=== PATIENT | female | born 1940 | race Caucasian/White ===

== ENCOUNTER 2018-01-17 09:04 | Inpatient (IN) | payer MEDICARE ==
[~2018-01-17] VITALS: Ht 154.9 cm; Wt 72.1 kg
[2018-01-17] VITALS (18 sets, daily range): BP systolic 89–117; BP diastolic 44–70
[2018-01-17 10:14] LABS: Basophils # (auto) 0 uL; Basophils % (auto) 0.5 % (0.0-2.0); Eosinophils # (auto) 0.1 uL; Eosinophils % (auto) 1.1 % (0.0-7.0); Hematocrit 27.9 % (36.0-46.0); Hemoglobin 9.4 g/dL (12.2-16.2); Lymphocytes # (auto) 0.8 uL; Lymphocytes % (auto) 16.4 % (10.0-50.0); Mean Corpuscular Hemoglobin 29.5 pg (28.0-32.0); Mean Corpuscular Hgb Conc. 33.6 g/dL (32.0-36.0); Mean Corpuscular Volume 87.5 fL (80.0-100.0); Monocytes # (auto) 0.5 uL; Monocytes % (auto) 9.9 % (0.0-12.0); Neutrophils # (auto) 3.7 uL; Neutrophils % (auto) 72.1 % (37.0-80.0); Platelet Count (auto) 253 10^3/uL (140-450); Red Blood Cells 3.18 10^6/uL (4.0-5.20); Red Cell Distribution Width 14.1 % (11.8-14.3); White Blood Cell 5.1 10^3/uL (4.4-10.8)
[2018-01-17 10:21] LABS: INR 1.04 (0.9-1.15); Partial Thromboplastin Time 27.3 sec (22.64-33.71); Prothrombin Time 11.3 sec (9.37-12.3)
[2018-01-17 10:39] LABS: Albumin 2.7 g/dL (3.4-5.0); Bilirubin, Total 0.8 mg/dL (0.2-1.0); Calcium 8.2 mg/dL (8.5-10.1); Magnesium 2.2 mg/dL (1.6-2.6); Potassium 3.9 mmol/L (3.5-5.1); Total Protein 6.3 g/dL (6.4-8.2)
[2018-01-17] MEDS ORDERED: ASPirin 81 mg TAB PO ONE (11:00)
[2018-01-17] MEDS ORDERED: FUROSEMIDE 20 MG/2 ML VIAL IV ONE (12:15)
[2018-01-17] MEDS ORDERED: NOREPINEPHRINE 8 MG/250ML KIT 250 ML IV SCH (12:18)
[2018-01-17] MEDS ORDERED: NOREPINEPHRINE 8 MG/250ML KIT 250 ML IV ONE (12:21)
[2018-01-17 13:15] LABS: Urine Bacteria NONE SEEN /hpf (None Seen); Urine Blood Negative /uL (Negative); Urine Specific Gravity 1.014 (1.001-1.035); Urine WBC <1 /hpf (0 - 5)
[2018-01-17] MEDS ORDERED: LEVOFLOXACIN 500 MG TAB PO ONE (14:45)
[2018-01-17] MEDS ORDERED: ALUM & MAG HYDROX-SIMETH LIQ(MAALOX) 30 ML PO ONE (14:45)
[2018-01-17] MEDS ORDERED: LORazepam 0.5 MG TAB PO PRN (14:45)
[2018-01-17] MEDS ORDERED: POTASSIUM CHL 10 Meq TABLET PO ONE (14:45)
[2018-01-17] MEDS ORDERED: PANTOPRAZOLE 40 MG TAB PO ONE (14:45)
[2018-01-17] MEDS ORDERED: ZOLPIDEM TARTRATE 5 MG TAB PO PRN (14:45)
[2018-01-17] MEDS ORDERED: ACETYLCYSTEINE ORAL for CIN 20%(200MG/ML) 4ML PO ONE (14:45)
[2018-01-17] MEDS ORDERED: ONDANSETRON HCL 4 MG/2 ML VIAL IV PRN (14:45)
[2018-01-17] MEDS ORDERED: MORPHINE SULFATE 4 MG/ML SYR/VIAL IV PRN ×2 (14:45)
[2018-01-17] MEDS ORDERED: ACETAMINOPHEN 325 MG TAB PO PRN (14:45)
[2018-01-17] MEDS ORDERED: NITROGLYCERIN 0.4 MG SL TAB SL PRN ×2 (14:45)
[2018-01-17] MEDS: NOREPINEPHRINE 8 MG/250ML KIT 250 ML IV SCH (15:08)
[2018-01-17] MEDS: ACETYLCYSTEINE ORAL for CIN 20%(200MG/ML) 4ML PO SCH ×3 (15:30→22:00)
[2018-01-17] MEDS ORDERED: SODIUM CHLORIDE 0.9% 500 ML IV ONE (17:00)
[2018-01-17] MEDS ORDERED: IOHEXOL 350 MG/ML 100ML IJ ONE (17:52)
[2018-01-17] MEDS: BOOST PLUS 8 ounce PO SCH (18:37)
[2018-01-17] MEDS: ENALAPRIL MALEATE 2.5 MG TAB PO SCH (22:00)
[2018-01-17] MEDS: ENOXAPARIN SOD 60 MG/0.6 ML SYRINGE SC SCH (22:00)
[2018-01-17] MEDS: PRAVASTATIN SODIUM 20 MG TAB PO SCH (22:00)
[2018-01-17] MEDS: CARVEDILOL 3.125 MG TAB PO SCH (22:00)
[2018-01-17] MEDS: SODIUM CHLOR 0.9% PF (SALINE LOCK) 10ML VIAL/SYR IV SCH (22:00)
[2018-01-18] VITALS (81 sets, daily range): BP systolic 87–145; BP diastolic 37–82
[2018-01-18 03:47] LABS: Basophils # (auto) 0 uL; Basophils % (auto) 0.3 % (0.0-2.0); Eosinophils # (auto) 0.1 uL; Eosinophils % (auto) 1.7 % (0.0-7.0); Hemoglobin 10.3 g/dL (12.2-16.2); Lymphocytes # (auto) 1.9 uL; Lymphocytes % (auto) 21.7 % (10.0-50.0); Mean Corpuscular Hemoglobin 29.5 pg (28.0-32.0); Mean Corpuscular Hgb Conc. 34.3 g/dL (32.0-36.0); Mean Corpuscular Volume 86.1 fL (80.0-100.0); Monocytes # (auto) 1.1 uL; Monocytes % (auto) 12.3 % (0.0-12.0); Neutrophils # (auto) 5.6 uL; Platelet Count (auto) 357 10^3/uL (140-450); Red Blood Cells 3.48 10^6/uL (4.0-5.20); Red Cell Distribution Width 14.1 % (11.8-14.3); White Blood Cell 8.7 10^3/uL (4.4-10.8)
[2018-01-18 04:21] LABS: Albumin 2.9 g/dL (3.4-5.0); BUN/Creatinine Ratio 24.8; Bilirubin, Total 0.5 mg/dL (0.2-1.0); Calcium 8.3 mg/dL (8.5-10.1); Potassium 3.7 mmol/L (3.5-5.1); Total Protein 6.6 g/dL (6.4-8.2)
[2018-01-18] MEDS: SODIUM CHLOR 0.9% PF (SALINE LOCK) 10ML VIAL/SYR IV SCH ×3 (08:23→22:26)
[2018-01-18] MEDS: BOOST PLUS 8 ounce PO SCH ×3 (08:24→18:53)
[2018-01-18] MEDS: ACETYLCYSTEINE ORAL for CIN 20%(200MG/ML) 4ML PO SCH ×2 (10:00→22:00)
[2018-01-18] MEDS: CARVEDILOL 3.125 MG TAB PO SCH ×2 (10:00→22:00)
[2018-01-18] MEDS: ENALAPRIL MALEATE 2.5 MG TAB PO SCH ×2 (10:00→22:00)
[2018-01-18] MEDS: PANTOPRAZOLE 40 MG TAB PO SCH (10:22)
[2018-01-18] MEDS: LEVOFLOXACIN 250 MG TAB PO SCH (10:22)
[2018-01-18] MEDS: DOCUSATE SOD 100 MG CAP PO SCH (10:22)
[2018-01-18] MEDS: POTASSIUM CHL 10 Meq TABLET PO SCH (10:22)
[2018-01-18] MEDS: CLOPIDOGREL BISULFATE 75 MG TAB PO SCH (10:22)
[2018-01-18] MEDS: FUROSEMIDE 20 MG/2 ML VIAL IV SCH (10:24)
[2018-01-18] MEDS: ENOXAPARIN SOD 60 MG/0.6 ML SYRINGE SC SCH ×2 (10:25→22:27)
[2018-01-18] MEDS ORDERED: DIGOXIN (250MCG/ML) 2 ML AMPULE IV ONE (11:45)
[2018-01-18] MEDS ORDERED: NICOTINE 14 MG/24HR TOPICAL PATCH TD ONE (13:00)
[2018-01-18] MEDS: NOREPINEPHRINE 8 MG/250ML KIT 250 ML IV SCH (14:45)
[2018-01-18] MEDS ORDERED: FAMOTIDINE 20 MG TAB PO ONE (15:00)
[2018-01-18] MEDS ORDERED: ALUM & MAG HYDROX-SIMETH LIQ(MAALOX) 30 ML PO PRN (15:00)
[2018-01-18] MEDS: PRAVASTATIN SODIUM 20 MG TAB PO SCH (23:00)
[2018-01-19] VITALS (102 sets, daily range): BP systolic 78–129; BP diastolic 36–89
[2018-01-19] MEDS: SODIUM CHLOR 0.9% PF (SALINE LOCK) 10ML VIAL/SYR IV SCH ×3 (05:15→21:54)
[2018-01-19 07:36] LABS: Basophils # (auto) 0 uL; Basophils % (auto) 0.3 % (0.0-2.0); Eosinophils # (auto) 0.1 uL; Eosinophils % (auto) 0.7 % (0.0-7.0); Hematocrit 27.8 % (36.0-46.0); Hemoglobin 9.8 g/dL (12.2-16.2); Lymphocytes # (auto) 1.2 uL; Lymphocytes % (auto) 15.5 % (10.0-50.0); Mean Corpuscular Hemoglobin 30.3 pg (28.0-32.0); Mean Corpuscular Hgb Conc. 35.1 g/dL (32.0-36.0); Mean Corpuscular Volume 86.2 fL (80.0-100.0); Monocytes # (auto) 0.8 uL; Monocytes % (auto) 10.2 % (0.0-12.0); Neutrophils # (auto) 5.5 uL; Neutrophils % (auto) 73.3 % (37.0-80.0); Nucleated Red Blood Cells % 0.1 %; Platelet Count (auto) 314 10^3/uL (140-450); Red Blood Cells 3.23 10^6/uL (4.0-5.20); Red Cell Distribution Width 14.3 % (11.8-14.3); White Blood Cell 7.5 10^3/uL (4.4-10.8)
[2018-01-19 08:12] LABS: Albumin 2.7 g/dL (3.4-5.0); Bilirubin, Total 0.8 mg/dL (0.2-1.0); Calcium 8.3 mg/dL (8.5-10.1); Potassium 3.6 mmol/L (3.5-5.1); Total Protein 6.4 g/dL (6.4-8.2)
[2018-01-19] MEDS: ACETYLCYSTEINE ORAL for CIN 20%(200MG/ML) 4ML PO SCH ×2 (10:00→22:00)
[2018-01-19] MEDS: ENALAPRIL MALEATE 2.5 MG TAB PO SCH ×2 (10:00→22:00)
[2018-01-19] MEDS: FUROSEMIDE 20 MG/2 ML VIAL IV SCH (10:29)
[2018-01-19] MEDS: NICOTINE 14 MG/24HR TOPICAL PATCH TD SCH (10:30)
[2018-01-19] MEDS: FAMOTIDINE 20 MG TAB PO SCH (10:30)
[2018-01-19] MEDS: ENOXAPARIN SOD 60 MG/0.6 ML SYRINGE SC SCH ×2 (10:48→21:54)
[2018-01-19] MEDS: POTASSIUM CHL 10 Meq TABLET PO SCH (10:49)
[2018-01-19] MEDS: CLOPIDOGREL BISULFATE 75 MG TAB PO SCH (10:49)
[2018-01-19] MEDS: CARVEDILOL 3.125 MG TAB PO SCH ×2 (10:49→22:00)
[2018-01-19] MEDS: PANTOPRAZOLE 40 MG TAB PO SCH (10:49)
[2018-01-19] MEDS: LEVOFLOXACIN 250 MG TAB PO SCH (10:49)
[2018-01-19] MEDS: DOCUSATE SOD 100 MG CAP PO SCH (10:49)
[2018-01-19] MEDS: BOOST PLUS 8 ounce PO SCH ×3 (10:50→18:00)
[2018-01-19] MEDS ORDERED: ALBUTEROL SULF 2.5 MG/0.5ML(0.5%) NEB SOLN NEB PRN (11:30)
[2018-01-19] MEDS ORDERED: LEVOFLOXACIN 500MG 100 ML IV ONE (11:45)
[2018-01-19] MEDS ORDERED: cefTRIAXone 1GM/10ml IVPUSH 10 ML IV ONE (11:45)
[2018-01-19] MEDS ORDERED: ALBUTEROL SULF 2.5 MG/0.5ML(0.5%) NEB SOLN NEB SCH (11:45)
[2018-01-19] MEDS: ALBUTEROL SULF 2.5 MG/0.5ML(0.5%) NEB SOLN NEB SCH ×2 (12:00→18:51)
[2018-01-19] MEDS: IPRATROPIUM BROM 0.5 MG/2.5ML INH SOL NEB SCH ×2 (12:00→18:51)
[2018-01-19] MEDS: methylPREDNISolone SOD SUCC 40 MG/ML VL IV SCH ×2 (13:59→19:46)
[2018-01-19] MEDS: NOREPINEPHRINE 8 MG/250ML KIT 250 ML IV SCH (15:00)
[2018-01-19] MEDS ORDERED: MIDAZOLAM HCL 5 MG/ML-1ML VIAL ONE (15:37)
[2018-01-19] MEDS ORDERED: ROCURONIUM 10MG/ML 10ML VIAL IV ONE (15:37)
[2018-01-19] MEDS ORDERED: ETOMIDATE (2MG/ML) 20ML VIAL IV ONE (15:37)
[2018-01-19] MEDS ORDERED: SUCCINYLCHOLINE CHLORIDE 20 MG/ML 10ML VIAL IV ONE (15:38)
[2018-01-19] MEDS ORDERED: PROPOFOL 100 ML IV ONE (17:45)
[2018-01-19] MEDS ORDERED: FUROSEMIDE 40 MG/4 ML VIAL IV ONE (21:15)
[2018-01-19] MEDS: PROPOFOL 100 ML IV SCH (21:54)
[2018-01-19] MEDS: PRAVASTATIN SODIUM 20 MG TAB PO SCH (22:00)
[2018-01-20] VITALS (91 sets, daily range): BP systolic 97–132; BP diastolic 54–98
[2018-01-20] MEDS: methylPREDNISolone SOD SUCC 40 MG/ML VL IV SCH ×5 (00:13→23:52)
[2018-01-20] MEDS: IPRATROPIUM BROM 0.5 MG/2.5ML INH SOL NEB SCH ×4 (00:29→18:43)
[2018-01-20] MEDS: ALBUTEROL SULF 2.5 MG/0.5ML(0.5%) NEB SOLN NEB SCH ×4 (00:29→18:43)
[2018-01-20 03:47] LABS: Basophils # (auto) 0 uL; Eosinophils # (auto) 0 uL; Hematocrit 30.7 % (36.0-46.0); Hemoglobin 10.5 g/dL (12.2-16.2); Lymphocytes # (auto) 0.6 uL; Lymphocytes % (auto) 11.2 % (10.0-50.0); Mean Corpuscular Hemoglobin 29.5 pg (28.0-32.0); Mean Corpuscular Hgb Conc. 34.2 g/dL (32.0-36.0); Mean Corpuscular Volume 86.4 fL (80.0-100.0); Monocytes # (auto) 0.2 uL; Monocytes % (auto) 3.3 % (0.0-12.0); Neutrophils # (auto) 4.8 uL; Neutrophils % (auto) 85.5 % (37.0-80.0); Nucleated Red Blood Cells % 0.1 %; Platelet Count (auto) 383 10^3/uL (140-450); Red Blood Cells 3.55 10^6/uL (4.0-5.20); Red Cell Distribution Width 14.1 % (11.8-14.3); White Blood Cell 5.6 10^3/uL (4.4-10.8)
[2018-01-20 03:54] LABS: Albumin 2.6 g/dL (3.4-5.0); BUN/Creatinine Ratio 27.5; Calcium 8.2 mg/dL (8.5-10.1); Potassium 3.7 mmol/L (3.5-5.1)
[2018-01-20 03:58] LABS: Bilirubin, Total 0.6 mg/dL (0.2-1.0); Total Protein 6.8 g/dL (6.4-8.2)
[2018-01-20] MEDS: SODIUM CHLOR 0.9% PF (SALINE LOCK) 10ML VIAL/SYR IV SCH ×3 (06:29→22:00)
[2018-01-20] MEDS: BOOST PLUS 8 ounce PO SCH ×3 (08:00→18:00)
[2018-01-20] MEDS: POTASSIUM CHL 10 Meq TABLET PO SCH (10:00)
[2018-01-20] MEDS: ENALAPRIL MALEATE 2.5 MG TAB PO SCH ×2 (10:00→21:41)
[2018-01-20] MEDS: CARVEDILOL 3.125 MG TAB PO SCH ×2 (10:00→21:41)
[2018-01-20] MEDS: FAMOTIDINE 20 MG TAB PO SCH (10:25)
[2018-01-20] MEDS: CLOPIDOGREL BISULFATE 75 MG TAB PO SCH (10:25)
[2018-01-20] MEDS: DOCUSATE SOD 100 MG CAP PO SCH (10:25)
[2018-01-20] MEDS: LEVOFLOXACIN 500MG 100 ML IV SCH (10:25)
[2018-01-20] MEDS: cefTRIAXone 1GM/10ml IVPUSH 10 ML IV SCH (10:26)
[2018-01-20] MEDS: NICOTINE 14 MG/24HR TOPICAL PATCH TD SCH (10:27)
[2018-01-20] MEDS: ENOXAPARIN SOD 60 MG/0.6 ML SYRINGE SC SCH ×2 (10:27→21:48)
[2018-01-20] MEDS: FUROSEMIDE 20 MG/2 ML VIAL IV SCH ×2 (10:28→18:00)
[2018-01-20] MEDS ORDERED: LACTULOSE 20Gm/30ML SOLN PO PRN (11:00)
[2018-01-20] MEDS ORDERED: OPTISON 3ml Vial for INJ IV ONE (11:48)
[2018-01-20] MEDS ORDERED: MIDAZOLAM HCL 1MG/1ML-2 ML VIAL ONE ×3 (11:54→15:18)
[2018-01-20] MEDS ORDERED: LIDOCAINE 2%HCL (LOCAL ANESTH.) INJ 20ML MDV ONE (13:17)
[2018-01-20] MEDS ORDERED: IOHEXOL 350 MG/ML 100ML IJ ONE ×2 (13:17→14:08)
[2018-01-20] MEDS ORDERED: ANGIOMAX 250 MG VIAL IV ONE (13:37)
[2018-01-20] MEDS ORDERED: SODIUM CHL 0.9% 50 ML ONE (13:38)
[2018-01-20] MEDS ORDERED: NITROGLYCERIN 50MG/250ML 250 ML IV ONE (15:44)
[2018-01-20] MEDS: NOREPINEPHRINE 8 MG/250ML KIT 250 ML IV SCH (16:15)
[2018-01-20] MEDS: NITROGLYCERIN 50MG/250ML 250 ML IV SCH (16:15)
[2018-01-20] MEDS: PROPOFOL 100 ML IV SCH (21:25)
[2018-01-20] MEDS: PRAVASTATIN SODIUM 20 MG TAB PO SCH (21:48)
[2018-01-21] VITALS (106 sets, daily range): BP systolic 27–296; BP diastolic 0–170
[2018-01-21] MEDS: ALBUTEROL SULF 2.5 MG/0.5ML(0.5%) NEB SOLN NEB SCH ×4 (00:06→19:03)
[2018-01-21] MEDS: IPRATROPIUM BROM 0.5 MG/2.5ML INH SOL NEB SCH ×4 (00:06→19:03)
[2018-01-21] MEDS: PROPOFOL 100 ML IV SCH ×4 (01:30→20:52)
[2018-01-21 03:58] LABS: Basophils # (auto) 0 uL; Basophils % (auto) 0.1 % (0.0-2.0); Eosinophils # (auto) 0 uL; Hemoglobin 9.8 g/dL (12.2-16.2); Lymphocytes # (auto) 0.5 uL; Lymphocytes % (auto) 5.1 % (10.0-50.0); Mean Corpuscular Hemoglobin 30.2 pg (28.0-32.0); Mean Corpuscular Hgb Conc. 35.1 g/dL (32.0-36.0); Mean Corpuscular Volume 86.1 fL (80.0-100.0); Monocytes # (auto) 0.7 uL; Monocytes % (auto) 6.7 % (0.0-12.0); Neutrophils # (auto) 8.6 uL; Neutrophils % (auto) 88.1 % (37.0-80.0); Platelet Count (auto) 356 10^3/uL (140-450); Red Blood Cells 3.25 10^6/uL (4.0-5.20); Red Cell Distribution Width 14.4 % (11.8-14.3); White Blood Cell 9.7 10^3/uL (4.4-10.8)
[2018-01-21 04:19] LABS: Albumin 2.3 g/dL (3.4-5.0); BUN/Creatinine Ratio 26.3; Calcium 7.6 mg/dL (8.5-10.1)
[2018-01-21 04:36] LABS: Bilirubin, Total 0.3 mg/dL (0.2-1.0); Total Protein 6.2 g/dL (6.4-8.2)
[2018-01-21] MEDS: FUROSEMIDE 20 MG/2 ML VIAL IV SCH ×2 (05:46→18:03)
[2018-01-21] MEDS: methylPREDNISolone SOD SUCC 40 MG/ML VL IV SCH ×3 (05:47→17:46)
[2018-01-21] MEDS: SODIUM CHLOR 0.9% PF (SALINE LOCK) 10ML VIAL/SYR IV SCH ×3 (05:47→22:13)
[2018-01-21] MEDS: BOOST PLUS 8 ounce PO SCH ×3 (08:00→18:00)
[2018-01-21] MEDS: FAMOTIDINE 20 MG TAB PO SCH (10:00)
[2018-01-21] MEDS: ENALAPRIL MALEATE 2.5 MG TAB PO SCH ×2 (10:00→22:00)
[2018-01-21] MEDS: ENOXAPARIN SOD 60 MG/0.6 ML SYRINGE SC SCH ×2 (10:00→22:12)
[2018-01-21] MEDS: CARVEDILOL 3.125 MG TAB PO SCH ×2 (10:00→22:00)
[2018-01-21] MEDS: CLOPIDOGREL BISULFATE 75 MG TAB PO SCH (10:00)
[2018-01-21] MEDS: LEVOFLOXACIN 500MG 100 ML IV SCH (10:24)
[2018-01-21] MEDS: cefTRIAXone 1GM/10ml IVPUSH 10 ML IV SCH (10:25)
[2018-01-21] MEDS: NICOTINE 14 MG/24HR TOPICAL PATCH TD SCH (10:25)
[2018-01-21] MEDS: SODIUM CHLORIDE 0.9% 1,000 ML IV SCH (15:00)
[2018-01-21] MEDS: NOREPINEPHRINE 8 MG/250ML KIT 250 ML IV SCH (15:00)
[2018-01-21] MEDS: NITROGLYCERIN 50MG/250ML 250 ML IV SCH (16:15)
[2018-01-21] MEDS: PRAVASTATIN SODIUM 20 MG TAB PO SCH (22:12)
[2018-01-22] VITALS (95 sets, daily range): BP systolic 26–125; BP diastolic 13–82
[2018-01-22] MEDS: IPRATROPIUM BROM 0.5 MG/2.5ML INH SOL NEB SCH ×4 (00:07→19:08)
[2018-01-22] MEDS: ALBUTEROL SULF 2.5 MG/0.5ML(0.5%) NEB SOLN NEB SCH ×4 (00:07→19:08)
[2018-01-22] MEDS: PROPOFOL 100 ML IV SCH ×2 (00:32→05:07)
[2018-01-22] MEDS: methylPREDNISolone SOD SUCC 40 MG/ML VL IV SCH ×4 (00:34→17:44)
[2018-01-22] MEDS: NITROGLYCERIN 50MG/250ML 250 ML IV SCH (02:40)
[2018-01-22] MEDS: SODIUM CHLORIDE 0.9% 1,000 ML IV SCH ×2 (04:04→17:25)
[2018-01-22 04:10] LABS: BUN/Creatinine Ratio 33.3; Calcium 7.1 mg/dL (8.5-10.1); Potassium 3.7 mmol/L (3.5-5.1)
[2018-01-22] MEDS: FUROSEMIDE 20 MG/2 ML VIAL IV SCH ×2 (06:07→17:45)
[2018-01-22] MEDS: SODIUM CHLOR 0.9% PF (SALINE LOCK) 10ML VIAL/SYR IV SCH ×3 (06:08→22:11)
[2018-01-22] MEDS ORDERED: LIDOCAINE 2%HCL (LOCAL ANESTH.) INJ 20ML MDV ONE (07:29)
[2018-01-22] MEDS ORDERED: IOHEXOL 350 MG/ML 100ML IJ ONE (07:29)
[2018-01-22] MEDS: BOOST PLUS 8 ounce PO SCH ×3 (08:00→18:00)
[2018-01-22] MEDS ORDERED: ANGIOMAX 250 MG VIAL IV ONE (08:14)
[2018-01-22] MEDS ORDERED: DOPamine 1600MCG/ML D5W 0 ML IV ONE (08:15)
[2018-01-22] MEDS ORDERED: SODIUM CHL 0.9% 50 ML ONE (08:15)
[2018-01-22] MEDS ORDERED: EPINEPHrine HCL 1 MG/10 ML SYRG ONE (08:15)
[2018-01-22] MEDS ORDERED: fentaNYL CITRATE 100 MCG/2 ML VL ONE (08:27)
[2018-01-22] MEDS ORDERED: MIDAZOLAM HCL 1MG/1ML-2 ML VIAL ONE (08:32)
[2018-01-22] MEDS ORDERED: LIDOCAINE HCL 100 MG/5ML (2%) SYRG INJ IV ONE (08:55)
[2018-01-22] MEDS ORDERED: TICAGRELOR 90 MG TAB ONE (09:15)
[2018-01-22] MEDS: ENOXAPARIN SOD 60 MG/0.6 ML SYRINGE SC SCH ×2 (10:00→22:11)
[2018-01-22] MEDS: CARVEDILOL 3.125 MG TAB PO SCH ×2 (10:00→22:00)
[2018-01-22] MEDS: CLOPIDOGREL BISULFATE 75 MG TAB PO SCH (10:00)
[2018-01-22] MEDS: ENALAPRIL MALEATE 2.5 MG TAB PO SCH ×2 (10:00→22:00)
[2018-01-22] MEDS: LEVOFLOXACIN 500MG 100 ML IV SCH (10:09)
[2018-01-22] MEDS: FAMOTIDINE 20 MG TAB PO SCH (10:10)
[2018-01-22] MEDS: cefTRIAXone 1GM/10ml IVPUSH 10 ML IV SCH (10:10)
[2018-01-22] MEDS: NICOTINE 14 MG/24HR TOPICAL PATCH TD SCH (10:12)
[2018-01-22] MEDS: POTASSIUM CHL 10% (20 MEQ/15ML) 15ml ORAL SOLN GT SCH (10:24)
[2018-01-22] MEDS: fentaNYL Drip 2500mCg/250mlNS 250 ML IV SCH (10:27)
[2018-01-22] MEDS: MIDAZOLAM DRIP 50 mg/50mL 50 ML IV SCH ×3 (10:32→22:59)
[2018-01-22 11:31] LABS: Basophils # (auto) 0 uL; Basophils % (auto) 0.1 % (0.0-2.0); Eosinophils # (auto) 0 uL; Hemoglobin 8.8 g/dL (12.2-16.2); Lymphocytes # (auto) 0.4 uL; Lymphocytes % (auto) 4.4 % (10.0-50.0); Mean Corpuscular Hemoglobin 29.8 pg (28.0-32.0); Mean Corpuscular Hgb Conc. 34.1 g/dL (32.0-36.0); Mean Corpuscular Volume 87.4 fL (80.0-100.0); Monocytes # (auto) 0.6 uL; Monocytes % (auto) 5.7 % (0.0-12.0); Neutrophils # (auto) 8.9 uL; Neutrophils % (auto) 89.8 % (37.0-80.0); Nucleated Red Blood Cells % 0.1 %; Platelet Count (auto) 299 10^3/uL (140-450); Red Blood Cells 2.97 10^6/uL (4.0-5.20); Red Cell Distribution Width 14.8 % (11.8-14.3); White Blood Cell 9.9 10^3/uL (4.4-10.8)
[2018-01-22] MEDS: NOREPINEPHRINE 8 MG/250ML KIT 250 ML IV SCH (17:58)
[2018-01-22] MEDS: PRAVASTATIN SODIUM 20 MG TAB PO SCH (22:11)
[2018-01-23] VITALS (107 sets, daily range): BP systolic 31–106; BP diastolic 15–68
[2018-01-23] MEDS: IPRATROPIUM BROM 0.5 MG/2.5ML INH SOL NEB SCH ×4 (00:11→18:50)
[2018-01-23] MEDS: ALBUTEROL SULF 2.5 MG/0.5ML(0.5%) NEB SOLN NEB SCH ×4 (00:11→18:50)
[2018-01-23] MEDS: methylPREDNISolone SOD SUCC 40 MG/ML VL IV SCH ×5 (00:15→23:31)
[2018-01-23 04:28] LABS: Basophils # (auto) 0 uL; Basophils % (auto) 0.1 % (0.0-2.0); Eosinophils # (auto) 0 uL; Hematocrit 24.9 % (36.0-46.0); Hemoglobin 8.5 g/dL (12.2-16.2); Lymphocytes # (auto) 0.3 uL; Mean Corpuscular Hgb Conc. 34.1 g/dL (32.0-36.0); Monocytes # (auto) 0.7 uL; Monocytes % (auto) 7.7 % (0.0-12.0); Neutrophils # (auto) 7.6 uL; Neutrophils % (auto) 89.2 % (37.0-80.0); Platelet Count (auto) 282 10^3/uL (140-450); Red Blood Cells 2.83 10^6/uL (4.0-5.20); Red Cell Distribution Width 14.9 % (11.8-14.3); White Blood Cell 8.6 10^3/uL (4.4-10.8)
[2018-01-23 04:46] LABS: Albumin 2.4 g/dL (3.4-5.0); BUN/Creatinine Ratio 38.1; Bilirubin, Total 0.2 mg/dL (0.2-1.0); Calcium 6.9 mg/dL (8.5-10.1); Total Protein 5.9 g/dL (6.4-8.2)
[2018-01-23] MEDS: FUROSEMIDE 20 MG/2 ML VIAL IV SCH ×2 (05:50→17:51)
[2018-01-23] MEDS: SODIUM CHLOR 0.9% PF (SALINE LOCK) 10ML VIAL/SYR IV SCH ×3 (06:00→21:32)
[2018-01-23] MEDS: SODIUM CHLORIDE 0.9% 1,000 ML IV SCH (06:45)
[2018-01-23] MEDS: MIDAZOLAM DRIP 50 mg/50mL 50 ML IV SCH ×2 (07:09→21:05)
[2018-01-23] MEDS: BOOST PLUS 8 ounce PO SCH (08:00)
[2018-01-23] MEDS: LEVOFLOXACIN 500MG 100 ML IV SCH (09:56)
[2018-01-23] MEDS: FAMOTIDINE 20 MG TAB PO SCH (09:56)
[2018-01-23] MEDS: CLOPIDOGREL BISULFATE 75 MG TAB PO SCH (09:56)
[2018-01-23] MEDS: ENOXAPARIN SOD 60 MG/0.6 ML SYRINGE SC SCH ×2 (09:57→21:32)
[2018-01-23] MEDS: NICOTINE 14 MG/24HR TOPICAL PATCH TD SCH (09:57)
[2018-01-23] MEDS: ENALAPRIL MALEATE 2.5 MG TAB PO SCH ×2 (09:58→21:27)
[2018-01-23] MEDS: CARVEDILOL 3.125 MG TAB PO SCH ×2 (09:58→21:28)
[2018-01-23] MEDS: fentaNYL Drip 2500mCg/250mlNS 250 ML IV SCH (10:06)
[2018-01-23] MEDS: POTASSIUM CHL 10% (20 MEQ/15ML) 15ml ORAL SOLN GT SCH (10:12)
[2018-01-23] MEDS ORDERED: FUROSEMIDE 20 MG/2 ML VIAL IV ONE (11:15)
[2018-01-23] MEDS ORDERED: Nutren Pulmonary 1 Liter GT SCH (11:30)
[2018-01-23] MEDS: NOREPINEPHRINE 8 MG/250ML KIT 250 ML IV SCH (14:45)
[2018-01-23] MEDS: NITROGLYCERIN 50MG/250ML 250 ML IV SCH (16:15)
[2018-01-23] MEDS: PROPOFOL 100 ML IV SCH (19:52)
[2018-01-23] MEDS: FREE WATER GT SCH (21:32)
[2018-01-23] MEDS: PRAVASTATIN SODIUM 20 MG TAB PO SCH (21:32)
[2018-01-24] VITALS (101 sets, daily range): BP systolic 35–114; BP diastolic 17–77
[2018-01-24] MEDS: ALBUTEROL SULF 2.5 MG/0.5ML(0.5%) NEB SOLN NEB SCH ×4 (00:19→18:06)
[2018-01-24] MEDS: IPRATROPIUM BROM 0.5 MG/2.5ML INH SOL NEB SCH ×4 (00:19→18:06)
[2018-01-24] MEDS: MIDAZOLAM DRIP 50 mg/50mL 50 ML IV SCH ×2 (03:40→10:25)
[2018-01-24] MEDS: NOREPINEPHRINE 8 MG/250ML KIT 250 ML IV SCH (03:40)
[2018-01-24 04:44] LABS: Basophils # (auto) 0 uL; Eosinophils # (auto) 0 uL; Lymphocytes # (auto) 0.2 uL; Nucleated Red Blood Cells % 0.1 %; Red Blood Cells 2.62 10^6/uL (4.0-5.20)
[2018-01-24 04:47] LABS: Basophils % (auto) 0.2 % (0.0-2.0); Eosinophils % (auto) 0.1 % (0.0-7.0); Hematocrit 23.2 % (36.0-46.0); Hemoglobin 7.8 g/dL (12.2-16.2); Lymphocytes % (auto) 3.8 % (10.0-50.0); Mean Corpuscular Hemoglobin 29.9 pg (28.0-32.0); Mean Corpuscular Hgb Conc. 33.9 g/dL (32.0-36.0); Mean Corpuscular Volume 88.4 fL (80.0-100.0); Monocytes # (auto) 0.5 uL; Monocytes % (auto) 7.6 % (0.0-12.0); Neutrophils # (auto) 5.3 uL; Neutrophils % (auto) 88.3 % (37.0-80.0); Platelet Count (auto) 217 10^3/uL (140-450); Red Cell Distribution Width 14.9 % (11.8-14.3); White Blood Cell 5.9 10^3/uL (4.4-10.8)
[2018-01-24 05:09] LABS: Albumin 2.4 g/dL (3.4-5.0); Bilirubin, Total 0.3 mg/dL (0.2-1.0); Calcium 7.3 mg/dL (8.5-10.1); Potassium 4.2 mmol/L (3.5-5.1); Total Protein 5.5 g/dL (6.4-8.2)
[2018-01-24] MEDS: FREE WATER GT SCH ×3 (05:36→22:08)
[2018-01-24] MEDS: FUROSEMIDE 20 MG/2 ML VIAL IV SCH ×2 (05:36→17:29)
[2018-01-24] MEDS: methylPREDNISolone SOD SUCC 40 MG/ML VL IV SCH ×3 (05:36→17:28)
[2018-01-24] MEDS: SODIUM CHLOR 0.9% PF (SALINE LOCK) 10ML VIAL/SYR IV SCH ×3 (05:36→22:00)
[2018-01-24] MEDS: CARVEDILOL 3.125 MG TAB PO SCH ×2 (10:00→22:00)
[2018-01-24] MEDS: ENALAPRIL MALEATE 2.5 MG TAB PO SCH ×2 (10:00→22:00)
[2018-01-24] MEDS: fentaNYL Drip 2500mCg/250mlNS 250 ML IV SCH (10:06)
[2018-01-24] MEDS: NICOTINE 14 MG/24HR TOPICAL PATCH TD SCH (10:23)
[2018-01-24] MEDS: ENOXAPARIN SOD 60 MG/0.6 ML SYRINGE SC SCH (10:24)
[2018-01-24] MEDS: CLOPIDOGREL BISULFATE 75 MG TAB PO SCH (10:24)
[2018-01-24] MEDS: FAMOTIDINE 20 MG TAB PO SCH (10:24)
[2018-01-24] MEDS: LEVOFLOXACIN 500MG 100 ML IV SCH (10:25)
[2018-01-24] MEDS: POTASSIUM CHL 10% (20 MEQ/15ML) 15ml ORAL SOLN GT SCH (10:25)
[2018-01-24] MEDS ORDERED: METOCLOPRAMIDE HCL 5MG/ml INJ 2ml VIAL IV ONE (13:00)
[2018-01-24] MEDS: NITROGLYCERIN 50MG/250ML 250 ML IV SCH (16:15)
[2018-01-24] MEDS ORDERED: EPOETIN ALFA 10,000 UNIT/1 ML VIAL SC ONE (18:00)
[2018-01-24] MEDS: PRAVASTATIN SODIUM 20 MG TAB PO SCH (22:09)
[2018-01-25] VITALS (108 sets, daily range): BP systolic 23–113; BP diastolic 13–82
[2018-01-25] MEDS: MIDAZOLAM DRIP 50 mg/50mL 50 ML IV SCH ×3 (00:05→11:19)
[2018-01-25] MEDS: NITROGLYCERIN 50MG/250ML 250 ML IV SCH (00:05)
[2018-01-25] MEDS: methylPREDNISolone SOD SUCC 40 MG/ML VL IV SCH ×5 (00:05→23:54)
[2018-01-25] MEDS: ALBUTEROL SULF 2.5 MG/0.5ML(0.5%) NEB SOLN NEB SCH ×4 (00:07→18:28)
[2018-01-25] MEDS: IPRATROPIUM BROM 0.5 MG/2.5ML INH SOL NEB SCH ×4 (00:07→18:28)
[2018-01-25] MEDS: PROPOFOL 100 ML IV SCH ×2 (03:01→19:52)
[2018-01-25] MEDS: FREE WATER GT SCH ×3 (05:23→21:46)
[2018-01-25] MEDS: SODIUM CHLOR 0.9% PF (SALINE LOCK) 10ML VIAL/SYR IV SCH ×3 (05:23→21:46)
[2018-01-25] MEDS: FUROSEMIDE 20 MG/2 ML VIAL IV SCH ×2 (05:23→18:38)
[2018-01-25] MEDS: POTASSIUM CHL 10% (20 MEQ/15ML) 15ml ORAL SOLN GT SCH (09:56)
[2018-01-25] MEDS: LEVOFLOXACIN 500MG 100 ML IV SCH (09:56)
[2018-01-25] MEDS: CLOPIDOGREL BISULFATE 75 MG TAB PO SCH (09:57)
[2018-01-25] MEDS: CARVEDILOL 3.125 MG TAB PO SCH ×2 (09:57→21:46)
[2018-01-25] MEDS: FAMOTIDINE 20 MG TAB PO SCH (09:57)
[2018-01-25] MEDS: ENOXAPARIN SOD 40 MG/0.4 ML SYRINGE SC SCH (09:57)
[2018-01-25] MEDS: ENALAPRIL MALEATE 2.5 MG TAB PO SCH ×2 (09:57→21:46)
[2018-01-25] MEDS: NICOTINE 14 MG/24HR TOPICAL PATCH TD SCH (09:59)
[2018-01-25] MEDS: fentaNYL Drip 2500mCg/250mlNS 250 ML IV SCH (10:06)
[2018-01-25] MEDS: NOREPINEPHRINE 8 MG/250ML KIT 250 ML IV SCH ×2 (14:45→23:54)
[2018-01-25] MEDS: PRAVASTATIN SODIUM 20 MG TAB PO SCH (21:46)
[2018-01-26] VITALS (52 sets, daily range): BP systolic 31–114; BP diastolic 13–79
[2018-01-26] MEDS: IPRATROPIUM BROM 0.5 MG/2.5ML INH SOL NEB SCH ×3 (00:09→11:47)
[2018-01-26] MEDS: ALBUTEROL SULF 2.5 MG/0.5ML(0.5%) NEB SOLN NEB SCH ×3 (00:09→11:47)
[2018-01-26] MEDS: MIDAZOLAM DRIP 50 mg/50mL 50 ML IV SCH ×2 (00:59→12:00)
[2018-01-26 03:52] LABS: Basophils # (auto) 0 uL; Eosinophils # (auto) 0 uL; Hemoglobin 8.4 g/dL (12.2-16.2); Lymphocytes # (auto) 0.4 uL; Monocytes # (auto) 0.4 uL; Neutrophils % (auto) 91.2 % (37.0-80.0); Nucleated Red Blood Cells % 0.1 %
[2018-01-26 04:00] LABS: Hematocrit 24.6 % (36.0-46.0); Lymphocytes % (auto) 4.1 % (10.0-50.0); Mean Corpuscular Hemoglobin 29.9 pg (28.0-32.0); Mean Corpuscular Hgb Conc. 34.1 g/dL (32.0-36.0); Mean Corpuscular Volume 87.8 fL (80.0-100.0); Monocytes % (auto) 4.7 % (0.0-12.0); Neutrophils # (auto) 7.8 uL; Platelet Count (auto) 218 10^3/uL (140-450); Red Blood Cells 2.81 10^6/uL (4.0-5.20); Red Cell Distribution Width 14.8 % (11.8-14.3); White Blood Cell 8.6 10^3/uL (4.4-10.8)
[2018-01-26 04:13] LABS: Albumin 2.4 g/dL (3.4-5.0); BUN/Creatinine Ratio 58.5; Calcium 7.8 mg/dL (8.5-10.1); Potassium 4.7 mmol/L (3.5-5.1)
[2018-01-26 04:30] LABS: Bilirubin, Total 0.3 mg/dL (0.2-1.0); Total Protein 5.7 g/dL (6.4-8.2)
[2018-01-26] MEDS: methylPREDNISolone SOD SUCC 40 MG/ML VL IV SCH ×2 (05:33→11:47)
[2018-01-26] MEDS: FREE WATER GT SCH ×2 (05:33→14:00)
[2018-01-26] MEDS: FUROSEMIDE 20 MG/2 ML VIAL IV SCH (05:33)
[2018-01-26] MEDS: SODIUM CHLOR 0.9% PF (SALINE LOCK) 10ML VIAL/SYR IV SCH ×2 (05:33→14:00)
[2018-01-26 05:49] LABS: Magnesium 2.9 mg/dL (1.6-2.6); Phosphorus 5.3 mg/dL (2.5-4.90)
[2018-01-26] MEDS: ENOXAPARIN SOD 40 MG/0.4 ML SYRINGE SC SCH (09:46)
[2018-01-26] MEDS: FAMOTIDINE 20 MG TAB PO SCH (09:46)
[2018-01-26] MEDS: CLOPIDOGREL BISULFATE 75 MG TAB PO SCH (09:46)
[2018-01-26] MEDS: LEVOFLOXACIN 500MG 100 ML IV SCH (09:47)
[2018-01-26] MEDS: POTASSIUM CHL 10% (20 MEQ/15ML) 15ml ORAL SOLN GT SCH (09:47)
[2018-01-26] MEDS: NICOTINE 14 MG/24HR TOPICAL PATCH TD SCH (09:47)
[2018-01-26] MEDS: CARVEDILOL 3.125 MG TAB PO SCH (09:47)
[2018-01-26] MEDS: ENALAPRIL MALEATE 2.5 MG TAB PO SCH (09:48)
[2018-01-26] MEDS: fentaNYL Drip 2500mCg/250mlNS 250 ML IV SCH (10:06)
== END 2018-01-26 15:00 | disposition short-term general hospital (02) | DRG 246 ==
LOC: EDBD 09:04 → ER 09:04 → OVERFLOW 09:05 → ICU WEST 19:32
PROVIDERS: ADMIT Internal Medicine; ATTEND Internal Medicine Pulmonary Disease
PROC: 5A1955Z Respiratory Ventilation, Greater than 96 Consecutive Hours (ICD-10-PCS; principal; 2018-01-19)
PROC: 0BH17EZ Insertion of Endotracheal Airway into Trachea, Via Natural or Artificial Opening (ICD-10-PCS; 2018-01-19)
PROC: 5A09357 Assistance with Respiratory Ventilation, Less than 24 Consecutive Hours, Continuous Positive Airway Pressure (ICD-10-PCS; 2018-01-19)
PROC: B246ZZ4 Ultrasonography of Right and Left Heart, Transesophageal (ICD-10-PCS; 2018-01-20)
PROC: 4A023N8 Measurement of Cardiac Sampling and Pressure, Bilateral, Percutaneous Approach (ICD-10-PCS; 2018-01-20)
PROC: B2111ZZ Fluoroscopy of Multiple Coronary Arteries using Low Osmolar Contrast (ICD-10-PCS; 2018-01-20)
PROC: B2151ZZ Fluoroscopy of Left Heart using Low Osmolar Contrast (ICD-10-PCS; 2018-01-20)
PROC: 027135Z Dilation of Coronary Artery, Two Arteries with Two Drug-eluting Intraluminal Devices, Percutaneous Approach (ICD-10-PCS; 2018-01-22)
PROC: 4A023N7 Measurement of Cardiac Sampling and Pressure, Left Heart, Percutaneous Approach (ICD-10-PCS; 2018-01-22)
PROC: B2111ZZ Fluoroscopy of Multiple Coronary Arteries using Low Osmolar Contrast (ICD-10-PCS; 2018-01-22)
DX: I21.4 Non-ST elevation (NSTEMI) myocardial infarction (principal); J96.01 Acute respiratory failure with hypoxia; R57.0 Cardiogenic shock; I50.43 Acute on chronic combined systolic (congestive) and diastolic (congestive) heart failure; J18.9 Pneumonia, unspecified organism; E44.0 Moderate protein-calorie malnutrition; I13.0 Hypertensive heart and chronic kidney disease with heart failure and stage 1 through stage 4 chronic kidney disease, or unspecified chronic kidney disease; D63.8 Anemia in other chronic diseases classified elsewhere; E87.1 Hypo-osmolality and hyponatremia; J44.0 Chronic obstructive pulmonary disease with (acute) lower respiratory infection; N18.3 Chronic kidney disease, stage 3 (moderate); E83.51 Hypocalcemia; M19.90 Unspecified osteoarthritis, unspecified site; I71.4 Abdominal aortic aneurysm, without rupture; F17.200 Nicotine dependence, unspecified, uncomplicated; F41.9 Anxiety disorder, unspecified; I25.10 Atherosclerotic heart disease of native coronary artery without angina pectoris; I25.5 Ischemic cardiomyopathy; I08.0 Rheumatic disorders of both mitral and aortic valves; Z86.73 Personal history of transient ischemic attack (TIA), and cerebral infarction without residual deficits; Z86.79 Personal history of other diseases of the circulatory system; Z87.440 Personal history of urinary (tract) infections; Z90.710 Acquired absence of both cervix and uterus; Z95.5 Presence of coronary angioplasty implant and graft; Z88.0 Allergy status to penicillin; Z88.2 Allergy status to sulfonamides; Z88.6 Allergy status to analgesic agent; Z79.899 Other long term (current) drug therapy; Z68.30 Body mass index [BMI] 30.0-30.9, adult
CPT/HCPCS: 36415; 36600; 51702; 71045; 71275; 80048; 80053; 80061; 81001; 82805; 83605; 83735; 83880; 84100; 84484; 85025; 85379; 85610; 85730; 87040; 87070; 87081; 87205; 93005; 93306; 93312; 93970; 94002; 94003; 94640; 94660; 96365; 96366; 96375; 99152; 99153; A4565; C1874; J0330; J0885; J1956; J2250; J2704; Q9956

== ENCOUNTER → 2018-04-08 | Outpatient (CLI) | payer MEDICARE ==
[~2018-04-08] MED LIST: ALBU1AER4 IN; AMI200T GT; ATO40T PO; CALCTAB34 PO; CLOP75TA28 PO; PANT40TA2 PO
[2018-04-08 12:04] LABS: Basophils # (auto) 0.1 uL; Basophils % (auto) 1.2 % (0.0-2.0); Eosinophils # (auto) 0.3 uL; Eosinophils % (auto) 5.9 % (0.0-7.0); Hematocrit 31.8 % (36.0-46.0); Hemoglobin 10.6 g/dL (12.2-16.2); Lymphocytes # (auto) 1.4 uL; Lymphocytes % (auto) 32.2 % (10.0-50.0); Mean Corpuscular Hemoglobin 29.8 pg (28.0-32.0); Mean Corpuscular Hgb Conc. 33.3 g/dL (32.0-36.0); Mean Corpuscular Volume 89.6 fL (80.0-100.0); Monocytes # (auto) 0.4 uL; Monocytes % (auto) 8.4 % (0.0-12.0); Neutrophils # (auto) 2.3 uL; Neutrophils % (auto) 52.3 % (37.0-80.0); Nucleated Red Blood Cells % 0.1 %; Platelet Count (auto) 299 10^3/uL (140-450); Red Blood Cells 3.56 10^6/uL (4.0-5.20); Red Cell Distribution Width 17.8 % (11.8-14.3); White Blood Cell 4.4 10^3/uL (4.4-10.8)
[2018-04-08 12:59] LABS: Albumin 3.2 g/dL (3.4-5.0); BUN/Creatinine Ratio 14.7; Calcium 8.9 mg/dL (8.5-10.1)
[2018-04-08 13:12] LABS: Bilirubin, Total 0.5 mg/dL (0.2-1.0)
== END | disposition home or self-care (01) ==
LOC: LAB 10:15
PROVIDERS: ATTEND Internal Medicine
DX: I13.0 Hypertensive heart and chronic kidney disease with heart failure and stage 1 through stage 4 chronic kidney disease, or unspecified chronic kidney disease (principal); N18.9 Chronic kidney disease, unspecified; I50.23 Acute on chronic systolic (congestive) heart failure; E78.5 Hyperlipidemia, unspecified; J44.1 Chronic obstructive pulmonary disease with (acute) exacerbation
CPT/HCPCS: 36415; 80053; 83880; 85025

== ENCOUNTER → 2018-08-16 | Outpatient (CLI) | payer MEDICARE ==
[2018-08-16 12:24] LABS: Basophils # (auto) 0 uL; Basophils % (auto) 0.6 % (0.0-2.0); Eosinophils # (auto) 0.1 uL; Eosinophils % (auto) 2.3 % (0.0-7.0); Hematocrit 37.2 % (36.0-46.0); Hemoglobin 12.2 g/dL (12.2-16.2); Lymphocytes % (auto) 18.8 % (10.0-50.0); Mean Corpuscular Hemoglobin 29.4 pg (28.0-32.0); Mean Corpuscular Hgb Conc. 32.9 g/dL (32.0-36.0); Mean Corpuscular Volume 89.5 fL (80.0-100.0); Monocytes # (auto) 0.2 uL; Monocytes % (auto) 2.9 % (0.0-12.0); Neutrophils # (auto) 4.2 uL; Neutrophils % (auto) 75.4 % (37.0-80.0); Nucleated Red Blood Cells % 0.1 %; Platelet Count (auto) 266 10^3/uL (140-450); Red Blood Cells 4.16 10^6/uL (4.0-5.20); Red Cell Distribution Width 15.1 % (11.8-14.3); White Blood Cell 5.6 10^3/uL (4.4-10.8)
[2018-08-16 12:29] LABS: Albumin 4.2 g/dL (3.4-5.0); Calcium 9.7 mg/dL (8.5-10.1); Potassium 3.8 mmol/L (3.5-5.1)
[2018-08-16 12:35] LABS: BUN/Creatinine Ratio 20.6; Bilirubin, Total 0.6 mg/dL (0.2-1.0); Total Protein 8.2 g/dL (6.4-8.2); Urine Blood Negative /uL (Negative); Urine Specific Gravity 1.007 (1.001-1.035)
[2018-08-16 12:41] LABS: Free T4 (Free Thyroxine) 1.34 ng/dL (0.89-1.76)
== END | disposition home or self-care (01) ==
LOC: Rad HDHVI 08:42
PROVIDERS: ATTEND Internal Medicine
DX: I34.0 Nonrheumatic mitral (valve) insufficiency (principal); I10 Essential (primary) hypertension; I48.0 Paroxysmal atrial fibrillation; J44.9 Chronic obstructive pulmonary disease, unspecified; E03.9 Hypothyroidism, unspecified; E11.9 Type 2 diabetes mellitus without complications; E55.9 Vitamin D deficiency, unspecified; D51.9 Vitamin B12 deficiency anemia, unspecified; N39.0 Urinary tract infection, site not specified
CPT/HCPCS: 36415; 80053; 80061; 81003; 82306; 82607; 83036; 84439; 84443; 85025; 87086; 93306

== ENCOUNTER → 2019-04-05 | Outpatient (CLI) | payer MEDICARE ==
[~2019-04-05] MED LIST changes: -AMI200T GT; +AMIO200T4 GT; +CALC-425 PO; -CALCTAB34 PO
== END | disposition home or self-care (01) ==
LOC: Rad HDHVI 12:31
PROVIDERS: ATTEND Internal Medicine
DX: I08.1 Rheumatic disorders of both mitral and tricuspid valves (principal); R06.02 Shortness of breath
CPT/HCPCS: 93306

== ENCOUNTER → 2019-11-08 | Outpatient (CLI) | payer MEDICARE ==
[~2019-11-08] MED LIST changes: +IOHEXOL 350 MG/ML 100ML IJ ONE
[2019-11-08 14:00] VITALS: BP 138/83
--- NOTE | 2019-11-08 14:00 | NUR ---
PATIENT SENT FROM MD SIDE WITH ORDERS FOR CTA AND STAT LABS FROM DR EASTON.
--- NOTE | 2019-11-08 14:05 | NUR ---
IV insertion IV access obtained, via clean sterile technique by inserting 20 gauge catheter at RAC after 1 attempt(s). IV secured properly. No trauma to site. Patient tolerated procedure well. BLOOD DRAWN AND STAT LABS SENT.
--- NOTE | 2019-11-08 14:50 | NUR ---
STAT CREAT RECEIVED 1.[address] FOR CTA CHEST.
[2019-11-08 14:57] LABS: Calcium 8.9 mg/dL (8.5-10.1); Potassium 4.1 mmol/L (3.5-5.1)
[2019-11-08 14:59] LABS: BUN/Creatinine Ratio 10.9
--- NOTE | 2019-11-08 15:00 | NUR ---
PT ESCORTED BACK FROM CT FOLLOWING CTA CHEST. PT TOLERATED PROCEDURE WELL. VSS.
--- NOTE | 2019-11-08 15:17 | NUR ---
IV removal IV DC'd with sterile technique, catheter fully intact. Pressure dressing applied to site. Patient tolerated procedure well. Discharged with aftercare instructions per MD. NOTE: REMOVED BY ROBBIE CARMICHAEL
[2019-11-08 15:19] VITALS: BP 131/69
--- NOTE | 2019-11-08 15:19 | NUR ---
Discharge Instructions See e-MAR for any mediations given with this visit. Patient education given on disease process. Patient verbalized understanding. Previous labs reviewed. Patient discharged in stable condition with after care instructions. PT ADVISED TO DRINK PLENTY OF WATER FOR THE NEXT 48HRS
[2019-11-08 15:57] LABS: Basophils # (auto) 0 10 ^3/uL (0-0.2); Basophils % (auto) 0.7 % (0.0-2.0); Eosinophils # (auto) 0.1 10 ^3/uL (0-0.8); Eosinophils % (auto) 2.5 % (0.0-7.0); Hematocrit 36.5 % (36.0-46.0); Hemoglobin 12.1 g/dL (12.2-16.2); Lymphocytes # (auto) 1.6 10 ^3/uL (0.4-5.4); Lymphocytes % (auto) 32.9 % (10.0-50.0); Mean Corpuscular Hemoglobin 28.1 pg (28.0-32.0); Mean Corpuscular Hgb Conc. 33.2 g/dL (32.0-36.0); Mean Corpuscular Volume 84.6 fL (80.0-100.0); Monocytes # (auto) 0.4 10 ^3/uL (0-1.3); Neutrophils # (auto) 2.7 10 ^3/uL (1.6-8.6); Neutrophils % (auto) 54.9 % (37.0-80.0); Nucleated Red Blood Cells % 0.1 %; Platelet Count (auto) 239 10^3/uL (140-450); Red Blood Cells 4.32 10^6/uL (4.0-5.20); Red Cell Distribution Width 15.9 % (11.8-14.3); White Blood Cell 4.9 10^3/uL (4.4-10.8)
== END | disposition home or self-care (01) ==
LOC: Rad HDHVI 13:45
PROVIDERS: ATTEND Internal Medicine
DX: I50.9 Heart failure, unspecified (principal); R94.4 Abnormal results of kidney function studies; I71.4 Abdominal aortic aneurysm, without rupture
CPT/HCPCS: 36415; 80048; 83880; 85025; G0463; Q9967; 74175